=== PATIENT | female | born 1960 | race Caucasian/White ===

== ENCOUNTER 2016-07-01 16:48 | Emergency (ER) | payer OTHER ==
[2016-07-01 21:39] VITALS: BP 114/66
[2016-07-01] MEDS ORDERED: NS 0.9% 1000 ML* 1,000 ML IV ONE (21:55)
[2016-07-01 22:20] LABS: Hematocrit 47 % (35-47); Mean Corpuscular HGB Conc 34 g/dl (31-36); Mean Corpuscular Hemoglobin 32 pg (27-31); Mean Corpuscular Volume 95 fL (80-97); Mean Platelet Volume 10 um3 (7.4-10.4); Red Cell Distribution Width 13 % (10.5-15); White Blood Count 8.2 10^3/ul (3.5-10.8)
[2016-07-01 22:26] LABS: Urine Bacteria Absent (Absent); Urine Bilirubin Negative (Negative); Urine Glucose Negative (Negative); Urine Nitrite Negative (Negative)
[2016-07-01 22:37] LABS: Albumin 4.5 g/dL (3.2-5.2); C Reactive Protein 26.69 mg/L (< 5.00); Calcium 9.9 mg/dL (8.6-10.3); EGFR African American 73.8 (>60); EGFR Non-African American 57.4 (>60); Globulin 3.1 g/dL (2-4); Magnesium 2.1 mg/dL (1.9-2.7); Potassium 3.8 mmol/L (3.5-5.0); Total Bilirubin 0.8 mg/dL (0.2-1.0); Total Protein 7.6 g/dL (6.4-8.9)
--- NOTE | 2016-07-01 23:22 | ED ---
Too Martell Matthew, scribed for Lucius Hernandez MD on 07/01/16 at 2157 . Abdominal Pain/Female - HPI Summary HPI Summary: A 55 y/o female presents to the ED with RLQ abdominal pain since yesterday. The pain is rated 6/10 in severity. The pain is also worse with movement and moves diffusely into the upper abdomen. Associated symptoms include diarrhea. The patient denies fever, nausea, and vomiting. The patient hasn't eaten today. The patient has a Hx of diverticulitis within the last year. She was referred by her PCP 5 hours ago. - History of Current Complaint Chief Complaint: EDAbdPain Stated Complaint: ABD PAIN Time Seen by Provider: 07/01/16 21:51 Hx Obtained From: Patient ?: No Onset/Duration: Lasting Days, Still Present Severity Initially: Moderate Severity Currently: Moderate Pain Intensity: 6 Pain Scale Used: 0-10 Numeric Location: Discrete At: RLQ Radiates: No Aggravating Factor(s): Movement Alleviating Factor(s): Nothing Associated Signs and Symptoms: Positive: Diarrhea. Negative: Fever, Nausea, Vomiting Allergies/Adverse Reactions: Allergies Allergy/AdvReac Type Severity Reaction Status Date / Time Molds & Smuts Allergy Intermediate Congestion Verified 09/10/15 15:54 Ragweed Allergy Intermediate Eyes Uncoded 08/19/12 19:31 Itchy/Swollen/Red/Watery PMH/Surg Hx/FS Hx/Imm Hx Endocrine/Hematology History: Denies: Hx Diabetes, Hx Thyroid Disease Cardiovascular History: Denies: Hx Congestive Heart Failure, Hx Hypertension, Hx Pacemaker/ICD, Other Cardiovascular Problems/Disorders Respiratory History: Denies: Hx Asthma, Hx Chronic Obstructive Pulmonary Disease (COPD), Other Respiratory Problems/Disorders GI History: Reports: Hx Ulcer - GERD - hiatal hernia - Surgical History Surgery Procedure, Year, and Place: Hernia repair 2000, CHOLECYSTECTOMY Infectious Disease History: No Infectious Disease History: Denies: Hx Clostridium Difficile, Hx Hepatitis, Hx Human Immunodeficiency Virus (HIV), Traveled Outside the [place] in Last 30 Days - Family History Family History: No FHx of gastrointestinal disorders - Social History Alcohol Use: Rare Substance Use Type: Reports: Marijuana Smoking Status (MU): Current Every Day Smoker Type: Cigarettes Amount Used/How Often: 3/4 PPD Review of Systems Constitutional: Negative Negative: Fever Eyes: Negative ENT: Negative Cardiovascular: Negative Respiratory: Negative Positive: Abdominal Pain - RLQ, Diarrhea. Negative: Vomiting, Nausea Genitourinary: Negative Musculoskeletal: Negative Skin: Negative Neurological: Negative Psychological: Normal All Other Systems Reviewed And Are Negative: Yes Physical Exam Triage Information Reviewed: Yes Vital Signs On Initial Exam: Initial Vitals Temp Pulse Resp BP Pulse Ox 97.9 F 78 18 120/72 95 07/01/16 16:57 07/01/16 16:57 07/01/16 16:57 07/01/16 16:57 07/01/16 16:57 Vital Signs Reviewed: Yes Appearance: Positive: Well-Appearing, Pain Distress - mild discomfort Skin: Positive: Warm Head/Face: Positive: Normal Head/Face Inspection Eyes: Positive: RAYNE ENT: Positive: Hearing grossly normal Neck: Positive: Supple Respiratory/Lung Sounds: Positive: Breath Sounds Present Cardiovascular: Positive: RRR Abdomen Description: Positive: Soft, Other: - mild diffuse lower abd tenderness. Negative: Guarding Bowel Sounds: Positive: Present Musculoskeletal: Positive: Strength/ROM Intact Neurological: Positive: Sensory/Motor Intact Psychiatric: Positive: Affect/Mood Appropriate Diagnostics - Vital Signs Vital Signs Temp Pulse Resp BP Pulse Ox 07/01/16 21:37 96.9 F 70 16 114/66 98 07/01/16 18:01 97.6 F 75 18 117/71 95 07/01/16 16:57 97.9 F 78 18 120/72 95 - Laboratory Lab Results: Lab Results 07/01/16 07/01/16 07/01/16 Range/Units 22:10 22:10 22:10 WBC 8.2 (3.5-10.8) 10^3/ul RBC 5.00 (4.0-5.4) 10^6/ul Hgb 16.0 (12.0-16.0) g/dl Hct 47 (35-47) % MCV 95 (80-97) fL MCH 32 H (27-31) pg MCHC 34 (31-36) g/dl RDW 13 (10.5-15) % Plt Count 182 (150-450) 10^3/ul MPV 10 (7.4-10.4) um3 Neut % (Auto) 65.9 (38-83) % Lymph % (Auto) 23.9 L (25-47) % [place] % (Auto) 7.9 (1-9) % Eos % (Auto) 1.5 (0-6) % Baso % (Auto) 0.8 (0-2) % Absolute Neuts (auto) 5.4 (1.5-7.7) 10^3/ul Absolute Lymphs (auto) 2.0 (1.0-4.8) 10^3/ul Absolute Monos (auto) 0.7 (0-0.8) 10^3/ul Absolute Eos (auto) 0.1 (0-0.6) 10^3/ul Absolute Basos (auto) 0.1 (0-0.2) 10^3/ul Absolute Nucleated RBC 0 10^3/ul Nucleated RBC % 0.1 Sodium 135 (133-145) mmol/L Potassium 3.8 (3.5-5.0) mmol/L Chloride 99 L (101-111) mmol/L Carbon Dioxide 28 (22-32) mmol/L Anion Gap 8 (2-11) mmol/L BUN 15 (6-24) mg/dL Creatinine 1.00 H (0.51-0.95) mg/dL Est GFR ( Amer) 73.8 (>60) Est GFR (Non-Af Amer) 57.4 (>60) BUN/Creatinine Ratio 15.0 (8-20) Glucose 85 (70-100) mg/dL Lactic Acid (0.5-2.0) mmol/L Calcium 9.9 (8.6-10.3) mg/dL Magnesium 2.1 (1.9-2.7) mg/dL Total Bilirubin 0.80 (0.2-1.0) mg/dL AST 17 (13-39) U/L ALT 14 (7-52) U/L Alkaline Phosphatase 113 H (34-104) U/L C-Reactive Protein 26.69 H (< 5.00) mg/L Total Protein 7.6 (6.4-8.9) g/dL Albumin 4.5 (3.2-5.2) g/dL Globulin 3.1 (2-4) g/dL Albumin/Globulin Ratio 1.5 (1-3) Lipase 20 (11.0-82.0) U/L Urine Color [place] Urine Appearance Cloudy Urine pH 5.0 (5-9) Ur Specific [place] 1.028 (1.010-1.030) Urine Protein Negative (Negative) Urine Ketones Trace H (Negative) Urine Blood Negative (Negative) Urine Nitrate Negative (Negative) Urine Bilirubin Negative (Negative) Urine Urobilinogen Negative (Negative) Ur Leukocyte Esterase Trace H (Negative) Urine WBC (Auto) Trace(0-5/hpf) (Absent) Urine RBC (Auto) 1+(3-5/hpf) H (Absent) Urine Bacteria Absent (Absent) Urine Glucose Negative (Negative) 07/01/16 Range/Units 22:10 WBC (3.5-10.8) 10^3/ul RBC (4.0-5.4) 10^6/ul Hgb (12.0-16.0) g/dl Hct (35-47) % MCV (80-97) fL MCH (27-31) pg MCHC (31-36) g/dl RDW (10.5-15) % Plt Count (150-450) 10^3/ul MPV (7.4-10.4) um3 Neut % (Auto) (38-83) % Lymph % (Auto) (25-47) % [place] % (Auto) (1-9) % Eos % (Auto) (0-6) % Baso % (Auto) (0-2) % Absolute Neuts (auto) (1.5-7.7) 10^3/ul Absolute Lymphs (auto) (1.0-4.8) 10^3/ul Absolute Monos (auto) (0-0.8) 10^3/ul Absolute Eos (auto) (0-0.6) 10^3/ul Absolute Basos (auto) (0-0.2) 10^3/ul Absolute Nucleated RBC 10^3/ul Nucleated RBC % Sodium (133-145) mmol/L Potassium (3.5-5.0) mmol/L Chloride (101-111) mmol/L Carbon Dioxide (22-32) mmol/L Anion Gap (2-11) mmol/L BUN (6-24) mg/dL Creatinine (0.51-0.95) mg/dL Est GFR ( Amer) (>60) Est GFR (Non-Af Amer) (>60) BUN/Creatinine Ratio (8-20) Glucose (70-100) mg/dL Lactic Acid 0.8 (0.5-2.0) mmol/L Calcium (8.6-10.3) mg/dL Magnesium (1.9-2.7) mg/dL Total Bilirubin (0.2-1.0) mg/dL AST (13-39) U/L ALT (7-52) U/L Alkaline Phosphatase (34-104) U/L C-Reactive Protein (< 5.00) mg/L Total Protein (6.4-8.9) g/dL Albumin (3.2-5.2) g/dL Globulin (2-4) g/dL Albumin/Globulin Ratio (1-3) Lipase (11.0-82.0) U/L Urine Color Urine Appearance Urine pH (5-9) Ur Specific [place] (1.010-1.030) Urine Protein (Negative) Urine Ketones (Negative) Urine Blood (Negative) Urine Nitrate (Negative) Urine Bilirubin (Negative) Urine Urobilinogen (Negative) Ur Leukocyte Esterase (Negative) Urine WBC (Auto) (Absent) Urine RBC (Auto) (Absent) Urine Bacteria (Absent) Urine Glucose (Negative) Result Diagrams: 07/01/16 22:10 07/01/16 22:10 Lab Statement: Any lab studies that have been ordered have been reviewed, and results considered in the medical decision making process. - CT A/P CT CT Interpretation: Positive (See Comments) - uncomplicated mild sigmoid diverticulitis CT Interpretation Completed By: Radiologist Re-Evaluation - Re-Evaluation First Eval Change: Improved - results d/w pt. pt does not want to wait for dose of iv abx , pt requesting po meds Abdominal Pain Fem Course/Dx - Course Course Of Treatment: A 55 y/o female presents to the ED with RLQ abdominal pain since yesterday. The pain is rated 6/10 in severity. The pain is also worse with movement and moves diffusely into the upper abdomen. Associated symptoms include diarrhea. The patient denies fever, nausea, and vomiting. Labs were reviewed. CT A/P shows uncomplicated mild sigmoid diverticulitis. In the ED course, the patient was given IV fluid, Levaquin, and Flagyl. The patient will be discharged home on Levaquin and Flagyl with PCP follow-up. - Diagnoses Provider Diagnoses: Diverticulitis Discharge - Discharge Plan Condition: Stable Disposition: HOME Prescriptions: Levofloxacin TAB* [Levaquin TAB*] 500 mg PO DAILY #7 tab Metronidazole [Flagyl 500 MG TAB] 500 mg PO TID #30 tab Patient Education Materials: Metronidazole (By mouth), Levofloxacin (By mouth) , Diverticulitis (ED), Diverticulitis Diet (ED) Forms: *Work Release Referrals: [facility] [Outside] Additional Instructions: Please follow-up with your primary care physician in 3 days. The documentation as recorded by the Too smith Matthew accurately reflects the service I personally performed and the decisions made by , Lucius Hernandez MD.
[2016-07-02] MEDS ORDERED: Iodixanol* (CONTRAST) 320 MG/ML 100 ML SDV IV ONE (00:16)
[2016-07-02] MEDS ORDERED: metroNIDAZOLE IV 500 MG/100ML* 500 MG/100 ML BAG IVPB ONE (01:01)
[2016-07-02] MEDS ORDERED: Levofloxacin 500 MG IVPREMIX(* 500 MG/100 ML BAG IVPB ONE (01:01)
[2016-07-02] MEDS ORDERED: metroNIDAZOLE TAB* 250 MG PO ONE (01:24)
[2016-07-02] MEDS ORDERED: Levofloxacin TAB* 500 MG PO ONE (01:24)
--- NOTE | 2016-07-02 07:56 | RAD ---
CLINICAL HISTORY: Abdominal pain COMPARISON: April 07, 2006 TECHNIQUE: Multiple contiguous axial CT scans were obtained of the abdomen and pelvis after the administration of intravenous contrast. Coronal and sagittal multiplanar reformations are submitted for review. Oral contrast was administered. Delayed images were obtained through the abdomen and pelvis. FINDINGS: LUNG BASES: The lung bases are clear. LIVER: The liver is diffusely low in attenuation compared to the spleen. There are no focal hepatic parenchymal masses. BILE DUCTS: There is ectasia of the common duct up to 0.9 cm. GALLBLADDER: The gallbladder is not visualized. Surgical clips are noted in the gallbladder fossa. PANCREAS: The pancreas is normal, without mass or ductal dilatation. SPLEEN: Normal in size and appearance. UPPER GI TRACT: Evaluation of the gastrointestinal tract is limited by incomplete gastric distention. There is postsurgical change to the upper GI tract. SMALL BOWEL AND MESENTERY: The small bowel is normal in contour, course, and caliber. There is no obstruction or dilatation. COLON: There is extensive diverticulosis of the sigmoid colon and to a lesser extent of the descending colon. There is focal mucosal thickening with a questionable circumferential ("apple core") lesion of the sigmoid colon best seen on axial image 1:30 and coronal image 49, though this may be an artifact of peristalsis. There is mild stranding of the pericolonic fat. ADRENALS: Normal bilaterally. KIDNEYS: The kidneys are normal in shape, size, contour, and axis. There is no hydronephrosis or nephrolithiasis. BLADDER: The bladder is smooth in contour. PELVIC ORGANS: The uterus and adnexa are grossly normal for technique. AORTA: There is calcific atherosclerotic disease of the abdominal aorta and its branches, without aneurysmal dilatation IVC: Unremarkable LYMPH NODES: There is no lymphadenopathy by size criteria. ABDOMINAL WALL: There is no evidence for abdominal wall hernia. BONES AND SOFT TISSUES: Mild degenerative changes are noted OTHER: None IMPRESSION: 1. SIGMOID DIVERTICULITIS, WITHOUT LOCULATED FLUID COLLECTION TO SUGGEST ABSCESS. 2. THERE IS FOCAL MUCOSAL THICKENING OF THE SIGMOID COLON. WHILE THIS MAY BE AN ARTIFACT OF PERISTALSIS, A CIRCUMFERENTIAL MUCOSAL NEOPLASM MAY GIVE A SIMILAR APPEARANCE. RECOMMEND CORRELATION WITH DIRECT VISUALIZATION IN THE NONACUTE SETTING. 3. ATHEROSCLEROSIS. 4. STATUS POST CHOLECYSTECTOMY WITH MILD ECTASIA OF THE COMMON DUCT. 5. FATTY INFILTRATION OF LIVER. 6. THE FINDINGS OF FOCAL MUCOSAL THICKENING OF THE SIGMOID COLON WERE DISCUSSED WITH DR. KING AT APPROXIMATELY 7:50 AM ON JULY 02, 2016
--- NOTE | 2016-07-02 08:14 | ED ---
Progress - Progress Note Progress Note: Phone call placed to the phone number on file for the patient and the next of kin at 0810 AM today, no answer. Unable to leave a voicemail. This was regarding possible malignancy seen on CT ABD. She deos have a [facility] for followup. Will attempt again later this morning. Re-Evaluation - Re-Evaluation First Eval Change: Improved - results d/w pt. pt does not want to wait for dose of iv abx , pt requesting po meds Course/Dx - Course Course Of Treatment: A 55 y/o female presents to the ED with RLQ abdominal pain since yesterday. The pain is rated 6/10 in severity. The pain is also worse with movement and moves diffusely into the upper abdomen. Associated symptoms include diarrhea. The patient denies fever, nausea, and vomiting. Labs were reviewed. CT A/P shows uncomplicated mild sigmoid diverticulitis. In the ED course, the patient was given IV fluid, Levaquin, and Flagyl. The patient will be discharged home on Levaquin and Flagyl with PCP follow-up. - Diagnoses Provider Diagnoses: Diverticulitis
== END 2016-07-02 01:49 | disposition home or self-care (01) ==
LOC: ED 16:48
DX: K57.92 Diverticulitis of intestine, part unspecified, without perforation or abscess without bleeding (principal); R19.7 Diarrhea, unspecified; R10.31 Right lower quadrant pain; F17.210 Nicotine dependence, cigarettes, uncomplicated
CPT/HCPCS: 36415; 74177; 80053; 81003; 81015; 83605; 83690; 83735; 85025; 86140; 87086; 99283; A9270-GY; J1956; Q9967

== ENCOUNTER → 2016-12-07 19:54 | Emergency (ER) | payer OTHER ==
[~2016-12-07 19:54] MED LIST: Magnesium Sulfate 1 GM IV* 1 GM/100 ML BAG IV ONE; Magnesium Sulfate IV* 0.5 GM/ML 2 ML VIAL (1 GM) ONE; NS 0.9% 1000 ML*IV.FLUID BOLUS ONE
--- NOTE | 2016-12-07 20:41 | RAD ---
INDICATION: Near syncope COMPARISON: October 22, 2012 TECHNIQUE: An AP portable view obtained at 2040 hours is submitted. FINDINGS: Bones/Soft Tissues: There are no acute bony findings. Cardiomediastinal: The cardiomediastinal silhouette is normal. Lungs: There are no infiltrates. Pleura: There are no pleural effusions. Other: None IMPRESSION: NO ACTIVE DISEASE.
[2016-12-07 20:43] LABS: Hematocrit 40 % (35-47); Hemoglobin 13.7 g/dl (12.0-16.0); Mean Corpuscular HGB Conc 34 g/dl (31-36); Mean Corpuscular Hemoglobin 32 pg (27-31); Mean Corpuscular Volume 95 fL (80-97); Mean Platelet Volume 10 um3 (7.4-10.4); Red Blood Count 4.24 10^6/ul (4.0-5.4); Red Cell Distribution Width 13 % (10.5-15)
[2016-12-07 21:02] LABS: ALT 14 U/L (7-52); AST 16 U/L (13-39); Albumin 3.7 g/dL (3.2-5.2); Alkaline Phosphatase 92 U/L (34-104); Anion Gap 4 mmol/L (2-11); BUN/Creatinine Ratio 11.5 (8-20); Blood Urea Nitrogen 10 mg/dL (6-24); CO2 Carbon Dioxide 25 mmol/L (22-32); Calcium 8.7 mg/dL (8.6-10.3); Chloride 106 mmol/L (101-111); EGFR African American 86.3 (>60); EGFR Non-African American 67.1 (>60); Globulin 2.2 g/dL (2-4); Glucose 113 mg/dL (70-100); Magnesium 1.8 mg/dL (1.9-2.7); Potassium 3.5 mmol/L (3.5-5.0); Sodium 135 mmol/L (133-145); Total Protein 5.9 g/dL (6.4-8.9)
[2016-12-07 21:45] LABS: Alcohol < 10 mg/dL (<10)
--- NOTE | 2016-12-07 21:45 | RAD ---
INDICATION: Dizziness. Near-syncope. COMPARISON: CT brain August 19, 2012 TECHNIQUE: Noncontrast axial source images were acquired from the skull base to the vertex. FINDINGS: Ventricles/sulci: The ventricles and cisterns are normal in size and configuration for age. Brain parenchyma: There is no focal parenchymal finding, evidence of intracranial mass, or intracranial mass effect. Intracranial hemorrhage:None. Extra-axial spaces: There are no abnormal extra axial fluid collections or evidence of extra-axial mass. Calvarium: There is no calvarial fracture or other calvarial abnormality. Scalp: There is no evidence of scalp or extracalvarial soft tissue abnormality. Paranasal sinuses/mastoid: The paranasal sinuses and mastoid air cells are clear. Other: None. IMPRESSION: No acute intracranial findings
[2016-12-07 21:48] LABS: Urine Bilirubin Negative (Negative); Urine Glucose Negative (Negative); Urine Nitrite Negative (Negative)
[2016-12-07 22:01] LABS: TSH (Thyroid Stimulating Horm) 2.16 mcIU/mL (0.34-5.60)
[2016-12-07 22:50] VITALS: BP 96/56
--- NOTE | 2016-12-08 10:41 | ED ---
Guilherme Martell Thomas, scribed for Loreto Dover MD on 12/07/16 at 2123 . Syncope/Near Syncope - HPI Summary HPI Summary: The pt is a 56 y/o F presenting to the ED c/o a syncopal episode today at 19:00 when she sat up from a seated position and became lightheaded. Before the syncope, she had visual changes characterized as floaters. She had another syncopal episode after which she became very pale. She says she was short of breath secondary to anxiety. She developed C. diff four months ago after a course of antibiotics for diverticulitis. She was on vancomycin for four months and finished this course of antibiotics four days ago. She is no longer having diarrhea or abd pain. She is now defecating daily and her stool is formed but it is still yellow. She complains of R flank pain for the last two weeks. She also complains of R breast soreness. She missed her last mammogram appointment. Pt denies CP, aphasia, arm or leg weakness. She is accompanied by two family members. - History Of Current Complaint Chief Complaint: EDSyncope Time Seen by Provider: 12/07/16 20:11 Hx Obtained From: Patient, Family/Accounting Associate - accompanied by two family members Onset/Duration: Lasting Hours - first syncopal episode today at 19:00, Still Present Timing: Intermittent Episode Lasting - two syncopal episodes Context: Witnessed Activity At Onset: Other - Seated for first syncopal episode Aggravating Factor(s): Nothing Alleviating Factor(s): Spontaneous Resolution Associated Signs And Symptoms: Lightheadedness, Other - Yellow formed stool, R flank pain, R breast soreness; NEGATIVE: CP, aphasia, arm or leg weakness Frequency: Episodes x___ - two syncopal episodes - Allergies/Home Medications Allergies/Adverse Reactions: Allergies Allergy/AdvReac Type Severity Reaction Status Date / Time Molds & Smuts Allergy Intermediate Congestion Verified 09/10/15 15:54 Ragweed Allergy Intermediate Eyes Uncoded 08/19/12 19:31 Itchy/Swollen/Red/Watery PMH/Surg Hx/FS Hx/Imm Hx Previously Healthy: No Endocrine/Hematology History: Denies: Hx Diabetes, Hx Thyroid Disease Cardiovascular History: Denies: Hx Congestive Heart Failure, Hx Hypertension, Hx Pacemaker/ICD, Other Cardiovascular Problems/Disorders Respiratory History: Denies: Hx Asthma, Hx Chronic Obstructive Pulmonary Disease (COPD), Other Respiratory Problems/Disorders GI History: Reports: Hx Ulcer - GERD - hiatal hernia History: Denies: Hx Dialysis, Hx Renal Disease - Surgical History Surgery Procedure, Year, and Place: Hernia repair 2000, CHOLECYSTECTOMY Infectious Disease History: Yes Infectious Disease History: Denies: Hx Clostridium Difficile, Hx Hepatitis, Hx Human Immunodeficiency Virus (HIV), Traveled Outside the [place] in Last 30 Days - Family History Known Family History: Positive: None Family History: No FHx of gastrointestinal disorders - Social History Alcohol Use: Rare Substance Use Type: Reports: Marijuana Smoking Status (MU): Current Every Day Smoker Type: Cigarettes Amount Used/How Often: 3/4 PPD Review of Systems Eyes: Other - Visual changes characterized as floaters before the syncopal episode Negative: Chest Pain Positive: Shortness Of Breath - secondary to anxiety Positive: Other - Yellow formed stools. Negative: Abdominal Pain, Diarrhea Positive: flank pain - R flank pain for the last two weeks Positive: Other - Right breast soreness Neurological: Other - Lightheaded before syncope; NEGATIVE: aphasia Positive: Syncope - 2 episodes. Negative: Weakness - no arm or leg weakness All Other Systems Reviewed And Are Negative: Yes Physical Exam - Summary Physical Exam Summary: I examined her right breast. It is a normal exam with no lymphadenopathy. Triage Information Reviewed: Yes Vital Signs On Initial Exam: Initial Vitals Temp Pulse Resp BP Pulse Ox 97.7 F 71 16 93/62 97 12/07/16 19:55 12/07/16 19:55 12/07/16 19:55 12/07/16 19:55 12/07/16 19:55 Vital Signs Reviewed: Yes Appearance: Positive: Well-Appearing, No Pain Distress - presenting s/p syncopal episode, Well-Nourished Skin: Positive: Warm, Skin Color Reflects Adequate Perfusion Head/Face: Positive: Normal Head/Face Inspection Eyes: Positive: Conjunctiva Clear ENT: Positive: Normal ENT inspection Neck: Positive: Supple Respiratory/Lung Sounds: Positive: Clear to Auscultation, Breath Sounds Present , Other - No respiratory distress Cardiovascular: Positive: RRR, Pulses are Symmetrical in both Upper and Lower Extremities, Other - Brisk cap refill. Negative: Murmur Abdomen Description: Positive: Nontender, Soft Bowel Sounds: Positive: Present Musculoskeletal: Positive: Strength/ROM Intact, Other Neurological: Positive: Sensory/Motor Intact, Alert, Oriented to Person Place, Time, Facial Symmetry, Speech Normal Psychiatric: Positive: Normal Diagnostics - Vital Signs Vital Signs Temp Pulse Resp BP Pulse Ox 12/07/16 20:26 98 12/07/16 20:19 70 96/60 12/07/16 20:18 72 110/54 12/07/16 20:17 75 94/48 12/07/16 19:55 97.7 F 71 16 93/62 97 - Laboratory Lab Results: Lab Results 12/07/16 12/07/16 12/07/16 Range/Units 20:30 20:30 20:30 WBC (3.5-10.8) 10^3/ul RBC (4.0-5.4) 10^6/ul Hgb (12.0-16.0) g/dl Hct (35-47) % MCV (80-97) fL MCH (27-31) pg MCHC (31-36) g/dl RDW (10.5-15) % Plt Count (150-450) 10^3/ul MPV (7.4-10.4) um3 Neut % (Auto) (38-83) % Lymph % (Auto) (25-47) % [place] % (Auto) (1-9) % Eos % (Auto) (0-6) % Baso % (Auto) (0-2) % Absolute Neuts (auto) (1.5-7.7) 10^3/ul Absolute Lymphs (auto) (1.0-4.8) 10^3/ul Absolute Monos (auto) (0-0.8) 10^3/ul Absolute Eos (auto) (0-0.6) 10^3/ul Absolute Basos (auto) (0-0.2) 10^3/ul Absolute Nucleated RBC 10^3/ul Nucleated RBC % INR (Anticoag Therapy) 0.92 (0.89-1.11) APTT 23.1 L (26.0-36.3) seconds Sodium 135 (133-145) mmol/L Potassium 3.5 (3.5-5.0) mmol/L Chloride 106 (101-111) mmol/L Carbon Dioxide 25 (22-32) mmol/L Anion Gap 4 (2-11) mmol/L BUN 10 (6-24) mg/dL Creatinine 0.87 (0.51-0.95) mg/dL Est GFR ( Amer) 86.3 (>60) Est GFR (Non-Af Amer) 67.1 (>60) BUN/Creatinine Ratio 11.5 (8-20) Glucose 113 H (70-100) mg/dL Lactic Acid 1.1 (0.5-2.0) mmol/L Calcium 8.7 (8.6-10.3) mg/dL Magnesium 1.8 L (1.9-2.7) mg/dL Total Bilirubin 0.40 (0.2-1.0) mg/dL AST 16 (13-39) U/L ALT 14 (7-52) U/L Alkaline Phosphatase 92 (34-104) U/L Troponin I 0.00 (<0.04) ng/mL Total Protein 5.9 L (6.4-8.9) g/dL Albumin 3.7 (3.2-5.2) g/dL Globulin 2.2 (2-4) g/dL Albumin/Globulin Ratio 1.7 (1-3) TSH Pending Serum Alcohol Pending 12/07/16 Range/Units 20:30 WBC 11.0 H (3.5-10.8) 10^3/ul RBC 4.24 (4.0-5.4) 10^6/ul Hgb 13.7 (12.0-16.0) g/dl Hct 40 (35-47) % MCV 95 (80-97) fL MCH 32 H (27-31) pg MCHC 34 (31-36) g/dl RDW 13 (10.5-15) % Plt Count 143 L (150-450) 10^3/ul MPV 10 (7.4-10.4) um3 Neut % (Auto) 80.6 (38-83) % Lymph % (Auto) 12.6 L (25-47) % [place] % (Auto) 5.3 (1-9) % Eos % (Auto) 0.8 (0-6) % Baso % (Auto) 0.7 (0-2) % Absolute Neuts (auto) 8.8 H (1.5-7.7) 10^3/ul Absolute Lymphs (auto) 1.4 (1.0-4.8) 10^3/ul Absolute Monos (auto) 0.6 (0-0.8) 10^3/ul Absolute Eos (auto) 0.1 (0-0.6) 10^3/ul Absolute Basos (auto) 0.1 (0-0.2) 10^3/ul Absolute Nucleated RBC 0 10^3/ul Nucleated RBC % 0 INR (Anticoag Therapy) (0.89-1.11) APTT (26.0-36.3) seconds Sodium (133-145) mmol/L Potassium (3.5-5.0) mmol/L Chloride (101-111) mmol/L Carbon Dioxide (22-32) mmol/L Anion Gap (2-11) mmol/L BUN (6-24) mg/dL Creatinine (0.51-0.95) mg/dL Est GFR ( Amer) (>60) Est GFR (Non-Af Amer) (>60) BUN/Creatinine Ratio (8-20) Glucose (70-100) mg/dL Lactic Acid (0.5-2.0) mmol/L Calcium (8.6-10.3) mg/dL Magnesium (1.9-2.7) mg/dL Total Bilirubin (0.2-1.0) mg/dL AST (13-39) U/L ALT (7-52) U/L Alkaline Phosphatase (34-104) U/L Troponin I (<0.04) ng/mL Total Protein (6.4-8.9) g/dL Albumin (3.2-5.2) g/dL Globulin (2-4) g/dL Albumin/Globulin Ratio (1-3) TSH Serum Alcohol Result Diagrams: 12/07/16 20:30 12/07/16 20:30 Lab Statement: Any lab studies that have been ordered have been reviewed, and results considered in the medical decision making process. - Radiology CXR Xray Interpretation: No Acute Changes - no active disease. ED physician has reviewed this report and agrees. Radiology Interpretation Completed By: Radiologist - CT CT Brain CT Interpretation: No Acute Changes - no acute intracranial findings. ED physician has reviewed this report and agrees. CT Interpretation Completed By: Radiologist - EKG 20:45 Cardiac Rate: NL EKG Rhythm: Sinus Rhythm EKG Interpretation: Nml AV/IV/QTc. Right axis (116). No acute changes. EKG Comparison: Other - Compared to previous EKG on 10/22/12, axis is more rightward. Course/Dx Course Of Treatment: Allergies noted. Patients medications reviewed this visit. Assessment/Plan: The pt is a 56 y/o F presenting to the ED c/o a syncopal episode today at 19:00 when she sat up from a seated position and became lightheaded. She was lightheaded and had floaters before the syncope. She has a recent Hx of diverticulitis and finished a course of vancomycin four days ago. Patients medication reviewed this visit. In the ED course the patient was given IV fluids and magnesium. Bloodwork shows WBC 11, magnesium 1.8. UA clean and specific gravity 1.006. EKG was obtained. CXR shows no active disease. CT Brain reveals no acute intracranial findings. ED physician has reviewed this report and agrees. Patient will be discharged home with follow up by PCP. Pt is agreeable with this plan. Discharge - Discharge Plan Condition: Stable Disposition: HOME Patient Education Materials: Clostridium Difficile Infection (ED), Hypomagnesemia (ED), Near Syncope (ED) Referrals: No Primary Care Phys,NOPCP [Primary Care Provider] - Additional Instructions: REMEMBER TO GET YOUR MAMMOGRAM. Your lab studies showed a slightly low magnesium and we gave you IV magnesium. That can cause weakness. The rest of your studies were unremarkable. We have given you a copy of all of your results. Return to the emergency department for any new or worsening symptoms. The documentation as recorded by the Guilherme smith Thomas accurately reflects the service I personally performed and the decisions made by me, Loreto Dover MD.
== END | disposition home or self-care (01) ==
LOC: ED 19:54
DX: R42 Dizziness and giddiness (principal); R55 Syncope and collapse; R10.84 Generalized abdominal pain; F17.210 Nicotine dependence, cigarettes, uncomplicated
CPT/HCPCS: 36415; 70450; 71010; 80053; 80320; 81003; 83605; 83735; 84443; 84484; 85025; 85610; 85730; 93005; 96374; 99283; G0480; J3475